=== PATIENT | male | born 1950 | race Caucasian/White ===

== ENCOUNTER 2020-02-29 16:01 | Inpatient (IN) | payer MEDICARE, SELFPAY ==
--- NOTE | ~2020-02-29 | CT_ITS ---
EXAMINATION: CT abdomen pelvis w con DATE: 02/29/2020 18:17 INDICATION: Low abdominal pain. TECHNIQUE: Computed tomography (CT) of the abdomen and pelvis was performed with 100 mL Omnipaque 350 intravenous contrast. Automated exposure control and iterative reconstruction technique were employe d. The dose-length product was 1445.03 mGy-cm. COMPARISON: None. FINDINGS: The visualized portions of the lung bases demonstrate mild atelectasis. A calcified right l salma nodule is consistent with old granulomatous disease. No pleural effusion. The heart size is reuben l. There are coronary artery calcifications. No pericardial effusion. Partially visualized is right-s ided gynecomastia. The liver, gallbladder, spleen, pancreas, and adrenal glands are normal. There are cysts in the kidneys measuring up to 12 mm on the left. There are scattered diverticula in the colon . There is wall thickening of sigmoid colon with surrounding fat stranding and small foci of free int raperitoneal gas, consistent with diverticulitis with microperforation. There are no dilated loops of bowel. There are changes of appendectomy. There is a small left inguinal hernia containing fat. Ther e are no pathologically enlarged lymph nodes. There is no free intraperitoneal fluid. There is modera te lumbar spondylosis. IMPRESSION: 1. Sigmoid diverticulitis with microperforation. No abscess. Reviewed, dictated and finalized at location A.
--- NOTE | ~2020-02-29 | US_ITS ---
EXAMINATION:US venous doppler LE BI INDICATION:Leg swelling TECHNIQUE: Multiple grayscale, color flow and Doppler images of the bilateral lower extremity deep ve nous systems were obtained and reviewed. COMPARISON:No prior studies for comparison. FINDINGS: The common femoral, superficial femoral and popliteal veins demonstrate normal respiratory variation, augmentation and compressibility. Color flow is also seen within the posterior tibial, pe roneal, greater saphenous and profunda veins. IMPRESSION: 1: No lower extremity deep venous thrombosis. Reviewed, dictated and finalized at location B.
[2020-02-29 16:09] VITALS: BP 157/59; PULSE 79; RESP 16; TEMP 37.4; O2SAT 96
[2020-02-29] MEDS: SODIUM CHLORIDE 0.9% IV 1,000 ML 999 ML IV CONT (17:00)
[2020-02-29] MEDS: FAMOTIDINE 20 MG/2 ML VIAL IV PUSH (17:00)
--- NOTE | 2020-02-29 17:06 | ED.ABDPAIN ---
HPI - Abdominal Pain General Chief Complaint: Abdominal Pain <SWAPNA Jin Last Filed: 02/29/20 19:21> Stated Complaint: abdominal pain <SWAPNA Jin Last Filed: 02/29/20 19:21> Time Seen by Provider: 02/29/20 16:22 <SWAPNA Jin Last Filed: 02/29/20 19:21> Source: patient and family <SWAPNA Jin Last Filed: 02/29/20 19:21> Mode of arrival: ambulatory <SWAPNA Jin Last Filed: 02/29/20 19:21> Limitations: no limitations <SWAPNA Jin Last Filed: 02/29/20 19:21> History of Present Illness HPI narrative: Patient is a 69-year-old female who presents to emergency department for evaluation of abdominal discomfort for the last 3 days in the lower quadrants worse in the left lower quadrant denies any fever chills nausea vomiting denies similar occurrence in the past. Patient took hydrocodone this morning with improvement patient on arrival to emergency department per private vehicle in the room in no distress patient denies radicular symptoms paresthesias <SWAPNA Jin Last Filed: 02/29/20 19:21> Related Data Home Medications: Home Medications Medication Instructions Recorded Confirmed Complete Multi 50+ 1 tab-cap PO DAILY 02/29/20 03/01/20 aspirin [Aspir-81] 81 mg PO DAILY 02/29/20 03/01/20 loratadine [Claritin] 10 mg PO DAILY 02/29/20 03/01/20 losartan 100 mg PO DAILY 02/29/20 03/01/20 rosuvastatin 10 mg PO DAILY 02/29/20 03/01/20 <SWAPNA Jin Last Filed: 02/29/20 19:21> Allergies/Adverse Reactions: Allergies Allergy/AdvReac Type Severity Reaction Status Date / Time No Known Allergies Allergy Verified 02/29/20 16:48 <SWAPNA Jin Last Filed: 02/29/20 19:21> Review of Systems Review of Systems: All systems reviewed & are unremarkable except as noted in HPI and below <SWAPNA Jin Last Filed: 02/29/20 19:21> PMFSH Past Medical History Medical History: Medical History HTN (hypertension), malignant Hyperlipidemia Obesity Seasonal allergies <David Cutler PA-C - Last Filed: 02/29/20 19:21> Surgical History Surgical History: Surgical History History of tonsillectomy At the age of 11 <David Cutler PA-C - Last Filed: 02/29/20 19:21> Family History Family History: Family History Father Acute myocardial infarction Mother Cerebrovascular accident Sibling Acute myocardial infarction <SWAPNA Jin Last Filed: 02/29/20 19:21> Social History Social History: Social History Social History: The patient lives at home with his . She is the durable power managed services consultant for healthcare. He desires to be a full code. The patient stated that he did smoke socially about 30 years ago and smoked on and off for about 30 years. He occasionally has a glass a wine in the is a social drinker. He has no children. 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 No marijuana or illicit drugs. Years smoked: 10 Smoking status: Former smoker Tobacco type: cigarettes Second hand tobacco smoke exposure: No Alcohol intake: current Drinks per week: 1 Substance use: never Substance use type: does not use Gender identity (if verbalized by the patient): Male Spiritual care concerns: No <SWAPNA Jin Last Filed: 02/29/20 19:21> Exam Narrative: Exam Narrative: GENERAL: Well-appearing, obese, and in no acute distress. HEAD: Normocephalic, atraumatic. EYES: PERRLA and EOMI. ENT: Nares clear, no rhinorrhea or epistaxis. Mucous membranes moist. Oropharynx without tonsillar hypertrophy exudate or other lesions. CHEST: Clear to auscultation. No respiratory distress. N
[2020-02-29 17:09] LABS: Basophils Percent Auto 0.2 % (0.2-1.2); Eosinophils Absolute Auto 0.1 K/mm3 (0-0.3); Hematocrit 39.7 % (42.0-52.0); Hemoglobin 13.6 g/dL (14.0-18.0); Immature Granulocyte Absolute 0.05 K/mm3 (0.00-0.031); Immature Granulocyte Percent A 0.4 % (0-0.5); Immature Platelet Fraction Pct 3.7 % (0.9-11.2); Lymphocytes Absolute Auto 2.53 K/mm3 (0.9-3.2); Lymphocytes Percent Auto 18.7 % (18.3-44.2); Mean Corpuscular HGB Conc 34.3 g/dl (32-36); Mean Corpuscular Hemoglobin 33.3 pg (26-34); Mean Corpuscular Volume 97.1 fl (80-100); Mean Platelet Volume 11.5 fl (7.4-10.4); Monocytes Absolute Auto 1.4 K/mm3 (0.1-0.6); Monocytes Percent Auto 10.6 % (2.6-8.5); Neutrophils Absolute Auto 9.3 K/mm3 (1.3-6.7); Neutrophils Percent Auto 69.1 % (45.5-73.1); Platelet Count Result 139 k/mm3 (150-375); Red Blood Count 4.09 M/mm3 (4.6-6.20); Red Cell Distribution Width 13.2 % (11.5-14.5); White Blood Count 13.5 K/mm3 (4.5-10.0)
[2020-02-29 17:13] LABS: Add Urine Microscopic? YES; Appearance Urine Clear (Clear); Bacteria Urine Trace /hpf; Bilirubin Urine Negative (Negative); Blood Urine 1+ (Negative); Color Urine Yellow (Yellow); Glucose Urine UA Negative (Negative); Ketones Urine Negative (Negative); Leukocyte Esterase Ur Negative LEU/UL (Negative); Mucus Urine Rare /lpf; Nitrate Urine Negative (Negative); Protein Urine 1+ mg/dL (Negative); RBC Urine 0-2 /hpf (0-2); Specific Grav Ur 1.023 (1.001-1.035); WBC Urine 0-3 /hpf
[2020-02-29 17:21] LABS: Alanine Aminotransferase 46 U/L (4-50); Albumin Level 4.2 g/dL (3.5-5.1); Alkaline Phosphatase 78 U/L (38-126); Aspartate Amino Transferase 42 U/L (17-59); Bilirubin,Total 0.9 mg/dL (0.2-1.3); Blood Urea Nitrogen 19 mg/dL (9-20); Calcium 8.6 mg/dL (8.4-10.2); Carbon Dioxide 26 mmol/L (22-30); Chloride 103 mmol/L (98-107); Estimated CRCL calculation 133 ml/min; Estimated Glomerular Filt Rate > 60; Glucose 124 mg/dL (75-110); Lipase 27 U/L (23-300); Potassium 3.7 mmol/L (3.4-5.0); Sodium 135 mmol/L (137-145)
[2020-02-29 18:03] VITALS: BP 118/82; PULSE 64; RESP 15; O2SAT 95
--- NOTE | 2020-02-29 18:04 | PC.NURSE ---
Pt to CT scan via stretcher.
[2020-02-29 18:54] VITALS: BP 136/61; PULSE 58; RESP 14; O2SAT 94
[2020-02-29 19:49] VITALS: BP 136/66; PULSE 62; RESP 19; O2SAT 100
[2020-02-29 20:15] VITALS: BMI 41.3
[2020-02-29 20:19] VITALS: BP 145/88; PULSE 65; RESP 19; TEMP 36.3; O2SAT 95
--- NOTE | 2020-02-29 21:16 | PC.NURSE ---
This patient, Meliton Christianson, was admitted to Medical Room 251-. Patient/family oriented to hospital policies and general routines including ID bracelet, bed and alarms, visiting hours, pain management, procedures, bathroom and other care routines, personal items, smoking policy, room service/diet, and visiting hours. Valuables list has been completed. Information on how to activate the Rapid Response Team has been discussed. Patient/Family are encouraged to report perceived risks to care and to ask questions if they do not understand what they are told or what they should do.
[2020-02-29] MEDS: LACTATED RINGERS 1,000 ML 125 ML IV CONT (21:43)
[2020-02-29 22:00] VITALS: BP 142/60; PULSE 56; RESP 12; TEMP 36.8; O2SAT 97
--- NOTE | 2020-02-29 23:55 | PM.IMHP ---
H&P: HPI History of Present Illness Chief complaint: Diverticulitis microperforation Narrative: Meliton Christianson is a 69 year old male no prior history of diverticulitis or diverticulosis. To the emergency room today for evaluation of abdominal discomfort that is been going on for 3 days. The patient stated that he is been eating this popcorn with knots for the last several days. He has been having some abdominal tenderness to the lower abdomen especially left lower quadrant. The patient stated that resting helps relieve the pain and ambulating makes it worse. The patient also had a hydrocodone at home any took that and that seemed to relieve most of the pain. The patient had a 99.4 fever when he came. White count noted to be 13.5. CT of the abdomen and pelvis was read is sigmoid diverticulitis with microperforation. No abscess. Surgery was consulted. Patient was started on Zosyn. IV fluids, IV Pepcid and IV Tylenol as well for the discomfort. Date of service 02/29/2020 Review of Systems Review of Systems: All systems reviewed & are unremarkable except as noted in HPI and below Constitutional: Constitutional: Reports as per HPI and Reports no additional constitutional complaints Eyes: Eyes: Reports as per HPI and Reports no additional eye complaints ENT: Reports system reviewed and no additional complaints, except as documented and Reports Normal hearing present Cardiovascular: Cardiovascular: Reports no additional cardiovascular complaints Respiratory: Respiratory: Reports no additional respiratory complaints and Reports no additional respiratory complaints Gastrointestinal: Gastrointestinal: Reports as per HPI and Reports no additional gastrointestinal complaints Musculoskeletal: Musculoskeletal: Reports no additional musculoskeletal complaints Integumentary/Breasts: Skin/Breast: Reports system reviewed and no additional complaints, except as docu and Reports as per HPI Neurologic: Reports system reviewed and no additional complaints, except as documented, Reports as per HPI and Reports Normal hearing present Psychiatric: Psychiatric: Reports no additional psychiatric complaints and Reports as per HPI Endocrine: Endocrine: Reports no additional endocrine complaints Hematologic/Lymphatic: Hematologic/Lymphatic: Reports no additional hematologic/lymphatic complaints Allergic/Immunologic: Allergic/Immunologic: Reports no additional allergic/immunologic complaints ON LICENSE OF [facility] Past Medical History Medical History (Updated 03/01/20 @ 00:03 by Tere Mendiola NP) HTN (hypertension), malignant Hyperlipidemia Obesity Seasonal allergies Surgical History Surgical History (Updated 03/01/20 @ 00:03 by Tere Mendiola NP) History of tonsillectomy At the age of 11 Family History Family History Father Acute myocardial infarction Mother Cerebrovascular accident Sibling Acute myocardial infarction Social History Social History (Updated 03/01/20 @ 00:04 by Tere Mendiola NP) Social History: The patient lives at home with his . She is the durable power corporate attorney for healthcare. He desires to be a full code. The patient stated that he did smoke socially about 30 years ago and smoked on and off for about 30 years. He occasionally has a glass a wine in the is a social drinker. He has no children. 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 No marijuana or illicit drugs. Years smoked: 10 Smoking status: Former smoker Tobacco type: cigarettes Second hand tobacco smoke exposure: No Alcohol intake: current Drinks per week: 1 Substance use: never Substance use type: does not use Gender identity (if verbalized by the patient): Male Spiritual care concerns: No Meds Home Medications and Allergies Home Medications Medication Instructions Recorded Confirmed Type Complete Multi 50+ 02/29/20 History aspirin [Aspir-81] 81 m
[2020-03-01] VITALS (7 sets, daily range): BP systolic 119–158; BP diastolic 58–81; PULSE 55–65; RESP 12–18; TEMP 36.4–36.9; O2SAT 93–98
[2020-03-01 05:43] LABS: Basophils Percent Auto 0.2 % (0.2-1.2); Eosinophils Absolute Auto 0.2 K/mm3 (0-0.3); Eosinophils Percent Auto 2.1 % (0-4.4); Hematocrit 37.2 % (42.0-52.0); Hemoglobin 12.3 g/dL (14.0-18.0); Lymphocytes Absolute Auto 2.29 K/mm3 (0.9-3.2); Lymphocytes Percent Auto 21.9 % (18.3-44.2); Mean Corpuscular HGB Conc 33.1 g/dl (32-36); Mean Corpuscular Hemoglobin 32.7 pg (26-34); Mean Corpuscular Volume 98.9 fl (80-100); Mean Platelet Volume 11.1 fl (7.4-10.4); Monocytes Absolute Auto 1.1 K/mm3 (0.1-0.6); Monocytes Percent Auto 10.3 % (2.6-8.5); Neutrophils Absolute Auto 6.8 K/mm3 (1.3-6.7); Neutrophils Percent Auto 64.5 % (45.5-73.1); Platelet Count Result 115 k/mm3 (150-375); Red Blood Count 3.76 M/mm3 (4.6-6.20); Red Cell Distribution Width 13.2 % (11.5-14.5); White Blood Count 10.5 K/mm3 (4.5-10.0)
[2020-03-01 06:06] LABS: Alanine Aminotransferase 35 U/L (4-50); Albumin Level 3.6 g/dL (3.5-5.1); Alkaline Phosphatase 63 U/L (38-126); Aspartate Amino Transferase 31 U/L (17-59); Bilirubin,Total 0.9 mg/dL (0.2-1.3); Blood Urea Nitrogen 15 mg/dL (9-20); Calcium 7.8 mg/dL (8.4-10.2); Carbon Dioxide 26 mmol/L (22-30); Chloride 102 mmol/L (98-107); Estimated CRCL calculation 87 ml/min; Estimated Glomerular Filt Rate > 60; Glucose 116 mg/dL (75-110); Potassium 3.7 mmol/L (3.4-5.0); Sodium 134 mmol/L (137-145)
[2020-03-01] MEDS: LACTATED RINGERS 1,000 ML 125 ML IV CONT ×3 (06:46→22:08)
--- NOTE | 2020-03-01 08:59 | PM.CNGS ---
Assessment and Plan Assessment and plan (1) HTN (hypertension), malignant: Code(s): I10 - Essential (primary) hypertension Status: Chronic Assessment and Plan: continue current management per primary (2) Hyperlipidemia: Code(s): E78.5 - Hyperlipidemia, unspecified Status: Chronic Assessment and Plan: continue current management per primary (3) Diverticulitis of large intestine with perforation: Code(s): K57.20 - Diverticulitis of large intestine with perforation and abscess without bleeding Status: Acute Assessment and Plan: exam was largely benign, continue IV antibiotics, tolerating clear liquid diet at this point, will advance to low residue diet as tolerated History of Present Illness Consult details Consult date: 03/01/20 Reason for consult: abdominal pain Requesting physician: Mitchel Jacobs MD Narrative: The patient is a 69-year-old male presenting to the emergency department complaining of a one-week history of progressively worsening lower abdominal pain. The patient reports the pain started out very mildly, however over the last 2 days has progressed to constant, sharp pain. The patient reports some mild chills at home, however no fevers. The patient reports he has had normal appetite and bowel function. The patient reports similar milder episodes in the past, however has never needed treatment. The patient reports last colonoscopy was 6 years ago and reportedly normal. Review of Systems Constitutional: Constitutional: Denies anorexia, Reports chills, Denies fatigue, Denies headache(s), Denies malaise, Denies poor appetite, Denies weakness, Denies weight gain and Denies weight loss Eyes: Eyes: Reports no additional eye complaints and Denies loss of vision ENT: Reports Normal hearing present, Denies dysphagia, Denies headache(s), Denies hearing loss and Denies sore throat Cardiovascular: Cardiovascular: Denies chest pain, Denies syncope, Denies irregular heart rhythm, Denies leg edema and Denies dyspnea Respiratory: Respiratory: Denies cough and Denies dyspnea Gastrointestinal: Gastrointestinal: Reports abdominal pain, Reports bloating, Denies change in bowel habits, Denies change in stool character, Denies constipation, Denies dysphagia, Denies heartburn, Denies diarrhea, Denies nausea and Denies vomiting Genitourinary: Genitourinary: Denies dysuria, Denies urinary frequency and Denies urinary urgency Musculoskeletal: Musculoskeletal: Denies myalgias, Denies arthralgias and Denies muscle cramps Integumentary/Breasts: Skin/Breast: Denies non-healing lesions and Denies rash Neurologic: Denies syncope, Denies headache(s) and Denies loss of vision Psychiatric: Psychiatric: Reports no additional psychiatric complaints Endocrine: Endocrine: Denies change in body appearance and Denies fatigue Hematologic/Lymphatic: Hematologic/Lymphatic: Denies easy bleeding, Denies easy bruising and Denies lymphadenopathy PMFSH Past Medical History Medical History HTN (hypertension), malignant Hyperlipidemia Obesity Seasonal allergies Surgical History Surgical History History of tonsillectomy At the age of 11 Family History Family History Father Acute myocardial infarction Mother Cerebrovascular accident Sibling Acute myocardial infarction Social History Social History Social History: The patient lives at home with his . She is the durable power assistant city attorney for healthcare. He desires to be a full code. The patient stated that he did smoke socially about 30 years ago and smoked on and off for about 30 years. He occasionally has a glass a wine in the is a social drinker. He has no children. 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
[2020-03-01] MEDS: FAMOTIDINE 20 MG/2 ML VIAL IV PUSH ×2 (09:03→20:19)
--- NOTE | 2020-03-01 10:12 | PM.IMPN ---
Progress Note: A&P Assessment and Plan (1) Diverticulitis: Code(s): K57.92 - Diverticulitis of intestine, part unspecified, without perforation or abscess without bleeding Status: Acute Assessment and Plan: Patient reports dull abdominal discomfort for a couple weeks with acute worsening in lower abdominal pain a few days ago. CT abdomen demonstrates sigmoid diverticulitis with microperforation, no abscess. Advance diet as tolerated to low fiber and continue supportive care with IV hydration and pain control. Decrease rate IV fluids. Discussed low fiber for acute symptomatic period and high fiber diet long-term and appreciate power lineworker consultation. Mild leukocytosis is improved, check CBC in AM. Hopeful for possible discharge tomorrow with oral abx if he can tolerate a diet if OK with surgery. (2) HTN (hypertension), malignant: Code(s): I10 - Essential (primary) hypertension Status: Chronic Assessment and Plan: Last 150/60. Once we find out dosage of his losartan it can be resumed; otherwise PRN hydralazine is available. (3) Hyperlipidemia: Qualifiers: Hyperlipidemia type: unspecified Qualified Code(s): E78.5 - Hyperlipidemia, unspecified Code(s): E78.5 - Hyperlipidemia, unspecified Status: Chronic Assessment and Plan: Also can resume his home statin therapy once dosage is determined. Subjective Date/time seen: 03/01/20 0945 Interval history: Mr. Christianson is a pleasant 69yo M admitted for acute diverticulitis. He describes diffuse lower abdominal pain only slightly improved from yesterday. Tired, no rest last night. Able to tolerate some clear liquids for breakfast without nausea or vomiting. He has noticed SAM lower leg swelling over the past several weeks which he plans to bring up to his PCP at upcoming appointment. No chest pain or any shortness of breath per patient. No calf tenderness or pain, they just feel tight. BM yesterday was normal, no diarrhea or blood in stool. Review of Systems Review of Systems: Narrative: Twelve systems were reviewed with pertinent positives and negatives as per HPI. Exam Narrative: Exam Narrative: General: Obese male resting comfortably in bed in no acute distress. HEENT: Normocephalic, EOMI, oral mucosa moist. Cardiovascular: Rate and rhythm are regular. Respiratory: Lungs clear to auscultation. Non-labored breathing. Tolerating room air. Abdomen: Protuberant but soft, diffuse lower abdominal tenderness to palpation without guarding, bowel sounds present. Extremities: Peripheral pulses intact. Trace pitting edema SAM lower extremities below knee, negative Angelina's SAM. Neuro: No focal neurological deficits. Speech is clear. Objective Data Vital Signs Vital Signs: Last Vital Signs Temp 97.7 F 03/01/20 10:00 Pulse 62 03/01/20 10:00 Resp 18 03/01/20 10:00 BP 150/60 H 03/01/20 10:00 Pulse Ox 96 03/01/20 10:00 Intake/Output Intake/Output: Intake & Output 02/27/20 02/28/20 02/29/20 03/01/20 23:59 23:59 23:59 23:59 Intake Total 1150 2400 Output Total 440 Balance 1150 1960 Meds/Results Medications: Active Medications Generic Name Dose Route Start Last Admin Trade Name Freq PRN Reason Stop Dose Admin Famotidine 20 mg 03/01/20 09:00 03/01/20 09:03 Pepcid Iv IV PUSH 20 mg Q12HR KAROL Administration Hydralazine HCl 10 mg 03/01/20 00:08 Apresoline Hcl Inj IV PUSH Q8H PRN Blood Pressure - High Piperacillin/Tazobactam/Dextrose 3.375 gm in 50 mls @ 100 mls/hr 03/01/20 01:00 03/01/20 06:47 Zosyn 3.375 Gm/D5w 50ml Pm IVPB Infused Q6H KAROL Infusion Acetaminophen 1,000 mg in 100 mls @ 400 mls/hr 02/29/20 19:29 Ofirmev 1,000 Mg Ivpb IVPB 03/01/20 19:30 Q6H PRN Mild Pain (1-3) or Fever Lactated Ringer's 1,000 mls @ 125 mls/hr 02/29/20 19:30 03/01/20
--- NOTE | 2020-03-01 10:49 | PCDIET ---
Dietitian consult for low and high fiber education. See nutritional teaching intervention. Thank you for the consult!
--- NOTE | 2020-03-01 11:19 | PCNSR ---
On 03/01/20, the student, Peña Ho, provided care and completed [facility] documentation on this patient. I have reviewed the student's documentation and agree with the findings.
[2020-03-01] MEDS: MELATONIN 5 MG TABLET PO (20:19)
[2020-03-01] MEDS: ACETAMINOPHEN 500 MG TABLET 1000 MG PO (20:19)
[2020-03-02 05:45] LABS: Basophils Percent Auto 0.3 % (0.2-1.2); Eosinophils Absolute Auto 0.3 K/mm3 (0-0.3); Eosinophils Percent Auto 3.8 % (0-4.4); Hematocrit 38.5 % (42.0-52.0); Hemoglobin 12.6 g/dL (14.0-18.0); Immature Granulocyte Absolute 0.03 K/mm3 (0.00-0.031); Immature Granulocyte Percent A 0.4 % (0-0.5); Immature Platelet Fraction Pct 4.8 % (0.9-11.2); Lymphocytes Absolute Auto 2.03 K/mm3 (0.9-3.2); Lymphocytes Percent Auto 26.5 % (18.3-44.2); Mean Corpuscular HGB Conc 32.7 g/dl (32-36); Mean Corpuscular Hemoglobin 32.2 pg (26-34); Mean Corpuscular Volume 98.5 fl (80-100); Mean Platelet Volume 10.7 fl (7.4-10.4); Monocytes Absolute Auto 0.8 K/mm3 (0.1-0.6); Monocytes Percent Auto 10.7 % (2.6-8.5); Neutrophils Absolute Auto 4.5 K/mm3 (1.3-6.7); Neutrophils Percent Auto 58.3 % (45.5-73.1); Platelet Count Result 124 k/mm3 (150-375); Red Blood Count 3.91 M/mm3 (4.6-6.20); Red Cell Distribution Width 12.9 % (11.5-14.5); White Blood Count 7.7 K/mm3 (4.5-10.0)
[2020-03-02 05:53] LABS: Alanine Aminotransferase 38 U/L (4-50); Albumin Level 3.5 g/dL (3.5-5.1); Alkaline Phosphatase 73 U/L (38-126); Aspartate Amino Transferase 38 U/L (17-59); Bilirubin,Total 0.7 mg/dL (0.2-1.3); Blood Urea Nitrogen 14 mg/dL (9-20); Calcium 8.2 mg/dL (8.4-10.2); Carbon Dioxide 26 mmol/L (22-30); Chloride 106 mmol/L (98-107); Estimated CRCL calculation 87 ml/min; Estimated Glomerular Filt Rate > 60; Glucose 108 mg/dL (75-110); Magnesium 2.4 mg/dL (1.6-2.3); Potassium 4.2 mmol/L (3.4-5.0); Sodium 137 mmol/L (137-145)
[2020-03-02 06:00] VITALS: BP 145/53; PULSE 52; RESP 12; TEMP 36.6; O2SAT 96
[2020-03-02] MEDS: FAMOTIDINE 20 MG/2 ML VIAL IV PUSH (08:09)
--- NOTE | 2020-03-02 08:36 | PM.DS ---
DS: Admitting Diagnosis Admitting Diagnosis Admitting Diagnosis: Diverticulitis of intestine, part unspecified, without perforation or abscess without bleeding DS: Discharge Diagnosis Discharge Diagnosis (1) Diverticulitis of large intestine with perforation: Code(s): K57.20 - Diverticulitis of large intestine with perforation and abscess without bleeding Status: Acute (2) Obesity: Code(s): E66.9 - Obesity, unspecified Status: Chronic (3) HTN (hypertension), malignant: Code(s): I10 - Essential (primary) hypertension Status: Chronic (4) Hyperlipidemia: Qualifiers: Hyperlipidemia type: unspecified Qualified Code(s): E78.5 - Hyperlipidemia, unspecified Code(s): E78.5 - Hyperlipidemia, unspecified Status: Chronic DS: Summary Time Spent with Patient Time attestation: Total time spent providing and/or coordinating discharge services: Patient came to the emergency room on February 29, 2020. He complained of left lower quadrant pain. Exam showed tenderness in the left lower quadrant with guarding. He also had a low-grade fever of 99.4. [place] [address]. [place] scan showed acute diverticulitis with micro perforation. He was admitted to the hospitalist and Dr. Martin saw him in consultation for general surgery. He was started on clear liquids and then advanced to a low residue diet. He was much improved with no abdominal tenderness on March 02, 2020. He is able to be discharged now on a low residue diet and Augmentin oral antibiotics. Exam GI: Inspection: obesity GI Palp: Yes Soft to palpation, No Tenderness to palpation present (GI), No Guarding due to palpation present (GI) and No Palpable mass present DS: Data Data Completed and Pending Labs on day of discharge: Labs from last 24 hours 03/02/20 03/02/20 02/29/20 05:20 05:20 16:48 WBC 7.7 RBC 3.91 L Hgb 12.6 L Hct 38.5 L MCV 98.5 MCH 32.2 MCHC 32.7 RDW 12.9 Plt Count 124 L MPV 10.7 H Immature Gran % (Auto) 0.4 Neut % (Auto) 58.3 Lymph % (Auto) 26.5 Shannon % (Auto) 10.7 H Eos % (Auto) 3.8 Baso % (Auto) 0.3 Lymph # (Auto) 2.03 Shannon # (Auto) 0.8 H Eos # (Auto) 0.3 Baso # (Auto) 0.0 Abs Immat Gran (auto) 0.03 Absolute Neuts (auto) 4.5 Absolute Nucleated RBC 0.0 Nucleated RBC % 0.0 % Immature Plt Fraction 4.8 Sodium 137 135 L Potassium 4.2 3.7 Chloride 106 103 Carbon Dioxide 26 26 BUN 14 19 Creatinine 0.90 0.90 Estim Creat Clear Calc 87 133 Estimated GFR > 60 > 60 Glucose 108 124 H Calcium 8.2 L 8.6 Magnesium 2.4 H Total Bilirubin 0.7 0.9 AST 38 42 ALT 38 46 Alkaline Phosphatase 73 78 Total Protein 7.0 7.0 Albumin 3.5 4.2 Lipase 27 02/29/20 16:48 WBC 13.5 H RBC 4.09 L Hgb 13.6 L Hct 39.7 L MCV 97.1 MCH 33.3 MCHC 34.3 RDW 13.2 Plt Count 139 L MPV 11.5 H Immature Gran % (Auto) 0.4 Neut % (Auto) 69.1 Lymph % (Auto) 18.7 Shannon % (Auto) 10.6 H Eos % (Auto) 1.0 Baso % (Auto) 0.2 Lymph # (Auto) 2.53 Shannon # (Auto) 1.4 H Eos # (Auto) 0.1 Baso # (Auto) 0.0 Abs Immat Gran (auto) 0.05 H Absolute Neuts (auto) 9.3 H Absolute Nucleated RBC 0.0 Nucleated RBC % 0.0 % Immature Plt Fraction 3.7 Sodium Potassium Chloride Carbon Dioxide BUN Creatinine Estim Creat Clear Calc Estimated GFR Glucose Calcium Magnesium Total Bilirubin AST ALT Alkaline Phosphatase Total Protein Albumin Lipase Discharge Plan Discharge Attending physician on discharge: Linda Neves Consulting providers: Monica Martin ; David Cutler Discharging Clinician: Guanaco Guadalupe Anticipated Discharge Date/Time: 03/02/20 08:41 Patient Disposition: Home, Self-Care Activity: may shower and as tolerated Diet: low fiber Patient Instructions: Antibiotic Form Stand Alone Forms: General Discha
== END 2020-03-02 11:15 | disposition home or self-care (01) | DRG 392 ==
LOC: ANHED 20:48 → ANH2MED 20:56
PROVIDERS: Emergency Medicine Emergency Medical Services; Admitting Provider Internal Medicine; Emergency Provider Emergency Medicine; PCP Internal Medicine; Visit Provider Physician Assistant
DX: K57.20 Diverticulitis of large intestine with perforation and abscess without bleeding (principal); Z68.41 Body mass index [BMI] 40.0-44.9, adult; E66.01 Morbid (severe) obesity due to excess calories; I10 Essential (primary) hypertension; E78.5 Hyperlipidemia, unspecified; Z87.891 Personal history of nicotine dependence; J30.2 Other seasonal allergic rhinitis
CPT/HCPCS: 36415; 74177; 80053; 81001; 83690; 83735; 85025; 85055; 93970; 96361; 96365; 96366; 96367; 96375; 96376; 99285; A9270; G0378; J0131; J2543; J7030; J7120; Q9967

== ENCOUNTER 2020-04-10 00:41 | Outpatient (CLI) | payer MEDICARE, SELFPAY ==
[2020-04-10 18:19] LABS: SARS-CoV-2 RNA PCR Negative
== END 2020-04-10 00:42 | disposition home or self-care (01) ==
LOC: ANHCOVIDDT 00:42
PROVIDERS: PCP Internal Medicine; Visit Provider Internal Medicine Gastroenterology
DX: Z01.812 Encounter for preprocedural laboratory examination (principal); Z20.828 Contact with and (suspected) exposure to other viral communicable diseases
CPT/HCPCS: 87635; C9803; U0003

== ENCOUNTER 2020-04-12 01:05 | Day surgery (SDC) | payer MEDICARE, SELFPAY ==
[2020-04-02 10:32] VITALS: BMI 39.0
[2020-04-12 06:45] VITALS: BP 153/71; PULSE 63; RESP 16; TEMP 36.3; O2SAT 96; BMI 39.9
[2020-04-12] MEDS: LACTATED RINGERS 1,000 ML 150 ML IV CONT (07:10)
--- NOTE | 2020-04-12 07:31 | WPDANESEPPF ---
Anes - Initial Pre Proc Eval Procedure: Operation Date: 04/12/20 08:00 Proposed Procedures p Colonoscopy - Jose Miguel Gómez MD Date/Time: 04/12/20 07:31 Surgeon: Jose Miguel Gómez MD Pre Op Diagnosis: Diverticulitis Patient Data Age: 69 Gender: M Height: 5 ft 9 in Weight: 122.5 kg Last Vital Signs Temp 97.4 F L 04/12/20 06:45 Pulse 63 04/12/20 06:45 Resp 16 04/12/20 06:45 BP 153/71 H 04/12/20 06:45 Pulse Ox 96 04/12/20 06:45 Allergies Allergy/AdvReac Type Severity Reaction Status Date / Time No Known Allergies Allergy Verified 04/12/20 06:53 Home Medications Medication Instructions Recorded Confirmed Type aspirin [Aspir-81] 81 mg PO DAILY 02/29/20 04/02/20 History loratadine [Claritin] 10 mg PO DAILY 02/29/20 04/02/20 History losartan 100 mg PO DAILY 02/29/20 04/02/20 History rosuvastatin 10 mg PO DAILY 02/29/20 04/02/20 History hydrochlorothiazide 25 mg PO DAILY 04/02/20 04/02/20 History multivit,Ca,kxqa-BH-dooufy-lut 1 tablet PO DAILY 04/02/20 04/02/20 History [Complete Multi] Patient hx anesthesia problems: none Family hx anesthesia problems: none PMFSH Social History Social History Social History: The patient lives at home with his . She is the durable power insurance attorney for healthcare. He desires to be a full code. The patient stated that he did smoke socially about 30 years ago and smoked on and off for about 30 years. He occasionally has a glass a wine in the is a social drinker. He has no children. 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 No marijuana or illicit drugs. Years smoked: 10 Smoking status: Former smoker Tobacco type: cigarettes Second hand tobacco smoke exposure: No Alcohol intake: current Drinks per week: 1 Substance use: never Substance use type: does not use Gender identity (if verbalized by the patient): Male Spiritual care concerns: No Anes - Eval Final PreProcedure Day of Procedure 04/12/20 07:31 Patient weight: morbidly obese Heart: regular rate and rhythm Lungs: clear to auscultation Airway: Mallampati scale class III Neurological: alert and oriented Last oral intake: >/= 8 hours ASA classification: III Emergent: no Anesthetic plan: proceed Anesthesia type and monitoring: general GIVS and standard monitoring Informed Consent: The patient's anesthetic plan and its attendant risks and benefits were discussed with the patient/family/POA. Questions were solicited and answers provided to the satisfaction of the patient/family/POA.
--- NOTE | 2020-04-12 07:50 | WPDGICN ---
Assessment and Plan Assessment and plan (1) Diverticulitis: Code(s): K57.92 - Diverticulitis of intestine, part unspecified, without perforation or abscess without bleeding Status: Acute Assessment and Plan: Patient recently hospitalized with diverticulitis. He has had a good response to broad-spectrum antibiotic coverage is been asymptomatic over the last month. Patient presents today for screening colonoscopy. High-fiber diet is advised. Further recommendations may be given after endoscopy. GI Consult Note Consult date/time: 04/12/20 07:50 HPI: Meliton Christianson is a 69 year old male Seen in evaluation at the request of Dr Martin. patient recently hospitalized with diverticulitis. Patient had significant left lower quadrant abdominal pain. His treated with antibiotics in notice prompt improvement. A CT scan at the time hospitalization revealed evidence for micro perforation. He has done well since that time with no residual pain or discomfort. He is bowel habits a return to normal. He denies any weight loss or bleeding. Family history is noncontributory. Review of Systems Review of Systems: All systems reviewed & are unremarkable except as noted in HPI and below PMFSH Past Medical History Medical History Diverticulitis of large intestine with perforation HTN (hypertension), malignant Hyperlipidemia Obesity Seasonal allergies Surgical History Surgical History History of tonsillectomy At the age of 11 Family History Family History Father Acute myocardial infarction Mother Cerebrovascular accident Sibling Acute myocardial infarction Social History Social History Social History: The patient lives at home with his . She is the durable power deputy county attorney for healthcare. He desires to be a full code. The patient stated that he did smoke socially about 30 years ago and smoked on and off for about 30 years. He occasionally has a glass a wine in the is a social drinker. He has no children. 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 No marijuana or illicit drugs. Years smoked: 10 Smoking status: Former smoker Tobacco type: cigarettes Second hand tobacco smoke exposure: No Alcohol intake: current Drinks per week: 1 Substance use: never Substance use type: does not use Gender identity (if verbalized by the patient): Male Spiritual care concerns: No Meds Home Medications and Allergies Home Medications Medication Instructions Recorded Confirmed Type aspirin [Aspir-81] 81 mg PO DAILY 02/29/20 04/02/20 History loratadine [Claritin] 10 mg PO DAILY 02/29/20 04/02/20 History losartan 100 mg PO DAILY 02/29/20 04/02/20 History rosuvastatin 10 mg PO DAILY 02/29/20 04/02/20 History hydrochlorothiazide 25 mg PO DAILY 04/02/20 04/02/20 History multivit,Ca,hxeq-BS-pazoqq-lut 1 tablet PO DAILY 04/02/20 04/02/20 History [Complete Multi] Allergies Allergy/AdvReac Type Severity Reaction Status Date / Time No Known Allergies Allergy Verified 04/12/20 06:53 Vital Signs Vital Signs - 24 hr 04/12/20 06:45 Temperature 97.4 F L Pulse Rate 63 Respiratory Rate 16 Blood Pressure 153/71 H Pulse Oximetry 96 Exam Narrative: Exam Narrative: Physical exam reveals patient to be alert. Vital signs stable. HEENT exam unremarkable. Lungs are clear to auscultation and percussion. Heart is without murmur or extra sounds. Abdominal exam bowel sounds are present soft nontender with no hepatosplenomegaly. Digital external rectal exam is normal.
[2020-04-12 08:10] VITALS: BP 123/60; PULSE 54; RESP 19; O2SAT 94
[2020-04-12 08:20] VITALS: BP 147/70; PULSE 51; RESP 19; O2SAT 97
[2020-04-12 08:30] VITALS: BP 146/68; PULSE 56; RESP 19; O2SAT 97
== END 2020-04-12 08:45 | disposition home or self-care (01) ==
PROVIDERS: PCP Internal Medicine; Referring Provider Surgery; Visit Provider Internal Medicine Gastroenterology
PROC: 0DJD8ZZ Inspection of Lower Intestinal Tract, Via Natural or Artificial Opening Endoscopic (ICD-10-PCS; CPT 45378; principal; 2020-04-12 08:00)
DX: K57.30 Diverticulosis of large intestine without perforation or abscess without bleeding (principal); K64.8 Other hemorrhoids; I10 Essential (primary) hypertension; E78.5 Hyperlipidemia, unspecified; E66.01 Morbid (severe) obesity due to excess calories; Z68.39 Body mass index [BMI] 39.0-39.9, adult; Z87.891 Personal history of nicotine dependence; Z79.82 Long term (current) use of aspirin; Z79.899 Other long term (current) drug therapy
CPT/HCPCS: 45378; J2704; J7120

== ENCOUNTER 2020-12-09 08:10 | Outpatient (CLI) | payer MEDICARE, SELFPAY ==
--- NOTE | 2020-12-09 | ECHO_ITS ---
Patient Info Name: Meliton Christianson Age: 70 years : 1950 Gender: Male Ht: 68 in Wt: 250 lbs BSA: 2.38 m2 HR: 61 bpm BP: 165 / 80 mmHg Heart Rhythm: Sinus Rhythm Technical Quality: Good Exam Date: 12/09/2020 9:01 AM Exam Location: [facility] Patient Status: Outpatient Admit Date: 12/09/2020 Staff Ordering Physician: Pinky, Ronald Curtis MD Utility Worker: Ying Ellis RDCS Attending Provider: Dawood, Ronald Curtis MD Referring Physician: Pinky YOUNG; Exam Type: CA echo doppler color flow Study Info Indications R06.09 - Other forms of dyspnea R60.9 - Edema, unspecified Complete two-dimensional, color flow and Doppler transthoracic echocardiogram is performed. Summary 1. Complete two-dimensional, color flow and Doppler transthoracic echocardiogram is performed. 2. Left ventricular systolic function is normal, estimated at >70%. 3. There is mildly increased left ventricular wall thickness. 4. The left ventricular diastolic function is grade I diastolic dysfunction. 5. Left atrial chamber dimension is moderately enlarged. 6. There is no aortic valve stenosis. 7. There is trace mitral valve regurgitation. 8. There is trace tricuspid valve regurgitation. 9. Mild pulmonary hypertension, estimated pulmonary arterial systolic pressure is 36 mmHg. Left Ventricle Left ventricular chamber dimension is normal. Left ventricular systolic function is normal, estimated at >70%. There is mildly increased left ventricular wall thickness. The left ventricular diastolic function is grade I diastolic dysfunction. Right Ventricle Right ventricular chamber dimension is normal. Right ventricular systolic function is normal. Left Atria Left atrial chamber dimension is moderately enlarged. Right Atria Right atrial chamber dimension is normal. Aortic Valve The aortic valve is probable trileaflet. There is no aortic valve stenosis. There is no aortic valve regurgitation. Pulmonic Valve The pulmonic valve is not well visualized. There is trace pulmonic regurgitation. Mitral Valve The mitral valve has normal leaflets. There is trace mitral valve regurgitation. Tricuspid Valve The tricuspid valve leaflets are normal. There is trace tricuspid valve regurgitation. Mild pulmonary hypertension, estimated pulmonary arterial systolic pressure is 36 mmHg. Pericardium/Pleural The pericardium appears epicardial fat pad. There is trivial pericardial effusion. Inferior Vena Cava Normal inferior vena cava with >50% collapse upon inspiration consistent with normal right atrial pressure, 5 mmHg. Aorta The aortic root size at the sinus of Valsalva is normal. There is mild aortic atherosclerosis. Left Ventricular Outflow Tract Name Value Normal LVOT 2D LVOT Diameter 2.0 cm LVOT Doppler LVOT Peak Gradient 5 mmHg LVOT Mean Gradient 3 mmHg LVOT VTI 25 cm LVOT VTI/AV VTI Ratio 0.6 LVOT Stroke Volume 81 ml LVOT CO
== END 2020-12-09 08:11 | disposition home or self-care (01) ==
PROVIDERS: PCP Internal Medicine; Visit Provider Internal Medicine
DX: R06.00 Dyspnea, unspecified (principal); R60.9 Edema, unspecified; I51.7 Cardiomegaly; I27.20 Pulmonary hypertension, unspecified
CPT/HCPCS: 93306

== ENCOUNTER 2023-11-11 14:07 | Emergency (ER) | payer MEDICARE, SELFPAY ==
[2023-11-11 14:15] VITALS: BP 191/82; PULSE 68; RESP 20; TEMP 36.2; O2SAT 100
--- NOTE | 2023-11-11 15:40 | PC.NURSE ---
Pt reports his abd pain has decreased and he has appt with md tomorrow. Ambulatory out of dept.
== END 2023-11-11 15:40 | disposition left against medical advice (07) ==
LOC: ANHED 15:38
PROVIDERS: PCP Internal Medicine
DX: R10.31 Right lower quadrant pain (principal)
CPT/HCPCS: 99199